=== PATIENT | female | born 1945 | race Caucasian/White ===

== ENCOUNTER 2017-08-28 09:14 | Emergency (ER) | payer OTHER, MEDICAID ==
[~2017-08-28] VITALS: Ht 154.9 cm; Wt 70.0 kg
[2017-08-28 09:16] VITALS: BP 128/46
== END 2017-08-28 10:29 | disposition home or self-care (01) ==
LOC: ER 09:36
DX: E11.649 Type 2 diabetes mellitus with hypoglycemia without coma (principal); I10 Essential (primary) hypertension; T38.3X5A Adverse effect of insulin and oral hypoglycemic [antidiabetic] drugs, initial encounter; Y92.89 Other specified places as the place of occurrence of the external cause
CPT/HCPCS: 82962; 99284

== ENCOUNTER 2018-04-30 03:47 | Inpatient (IN) | payer OTHER, MEDICAID ==
[~2018-04-30] VITALS: Ht 162.6 cm; Wt 61.7 kg
[~2018-04-30 03:47] MED LIST: ASPI-1159 PO; CHOL100044 PO; DOCU-267 PO; FERR325T6 PO; GLIP10TA10 PO; HYDR-4094 PO; LOT105 GT; METF-414 PO; OMEP40CA34 PO; ONDA4TAB5 PO; P20 PO; PRAV80TA21 PO
[2018-04-30] MEDS ORDERED: SODIUM CHLORIDE 0.9% 1,000 ML IV ONE (04:12)
[2018-04-30] MEDS ORDERED: ONDANSETRON HCL 4MG/2ML INJ IV STA (04:12)
[2018-04-30] MEDS ORDERED: MORPHINE SULFATE 10 MG/ML CPJ IV ONE (04:15)
[2018-04-30 04:38] LABS: BASOPHILS % 1.2 % (0.0-2.0); EOSINOPHILS % 2.7 % (0.0-5.0); HEMATOCRIT. 29.5 % (36.0-48.0); HEMOGLOBIN. 10.2 g/dL (12.0-16.0); LYMPHOCYTES % 10.1 % (20.0-50.0); MEAN CORPUSCULAR HEMOGLOBIN 28.4 pg (28.0-32.0); MEAN CORPUSCULAR VOLUME 82.2 fL (81.0-99.0); MEAN PLATELET VOLUME 6.9 fl (7.4-10.4); MONOCYTES % 8.2 % (2.0-8.0); NEUTROPHILS % 77.8 % (40.0-76.0); PLATELET 347 x1000/uL (130-400); RED BLOOD CELL COUNT 3.59 mill/uL (4.2-5.4)
[2018-04-30 05:01] LABS: CHLORIDE 93 mEq/L (98-107)
[2018-04-30] MEDS ORDERED: IPRATROPIUM/ALBUTEROL 0.5-3(2.5)MG/3ML NEB INH PRN (08:30)
[2018-04-30] MEDS ORDERED: ONDANSETRON HCL 4MG/2ML INJ IV PRN (08:30)
[2018-04-30] MEDS ORDERED: ACETAMINOPHEN 325MG TABLET PO PRN (08:30)
[2018-04-30] MEDS ORDERED: HYDROMORPHONE HCL/PF 2MG/ML CPJ IV PRN (08:30)
[2018-04-30] MEDS ORDERED: DIPHENHYDRAMINE 50MG/ML VIAL IV PRN (08:30)
[2018-04-30 09:10] VITALS: BP 128/36
[2018-04-30] MEDS ORDERED: HYDR-4001 PO (10:27)
[2018-04-30] MEDS ORDERED: ALEN70TA46 MT (10:32)
[2018-04-30] MEDS ORDERED: OMEG-59 PO (10:32)
[2018-04-30 11:00] VITALS: BP 128/36
[2018-04-30] MEDS ORDERED: SODIUM CHLORIDE 0.9% 500 ML IV ONE (11:30)
[2018-04-30 12:00] VITALS: BP 121/46
[2018-04-30] MEDS: FERROUS SULFATE 325MG TABLET PO SCH ×2 (12:21→17:28)
[2018-04-30] MEDS: CHOLECALCIFEROL (D3) 1000 UNIT TABLET PO SCH (12:21)
[2018-04-30] MEDS: ASPIRIN 81MG TABLET PO SCH (12:22)
[2018-04-30] MEDS: PREDNISONE 20MG TABLET PO SCH ×3 (12:22→23:33)
[2018-04-30] MEDS ORDERED: PIPERACILLIN/TAZ 3.375G PREMIX 50 ML IV SCH (12:45)
[2018-04-30] MEDS: PIPERACILLIN/TAZ 2.25G PREMIX 50 ML IV SCH ×2 (14:36→20:20)
[2018-04-30] MEDS: SODIUM CHLORIDE 0.9% 1,000 ML IV SCH ×3 (14:36→23:33)
[2018-04-30 16:22] VITALS: BP 126/47
[2018-04-30] MEDS ORDERED: DEXTROSE 50% WATER 50ML SYRINGE IV PRN (16:30)
[2018-04-30] MEDS: BLOOD SUGAR DIAGNOSTIC STRIP TEST SCH ×2 (17:20→20:25)
[2018-04-30] MEDS: INSULIN LISPRO 100 UNITS/ML SUBCUT SCH ×2 (17:34→20:34)
[2018-04-30 20:00] VITALS: BP 134/50
[2018-04-30] MEDS: ATORVASTATIN CALCIUM 40MG TABLET PO SCH (20:20)
[2018-05-01] VITALS: BP 133/56
[2018-05-01] MEDS: PIPERACILLIN/TAZ 2.25G PREMIX 50 ML IV SCH ×4 (03:06→20:33)
[2018-05-01 04:00] VITALS: BP 122/61
[2018-05-01] MEDS: PREDNISONE 20MG TABLET PO SCH ×2 (06:32→12:55)
[2018-05-01] MEDS: BLOOD SUGAR DIAGNOSTIC STRIP TEST SCH ×5 (06:37→20:33)
[2018-05-01 06:58] LABS: BASOPHILS % 0.3 % (0.0-2.0); EOSINOPHILS % 0.1 % (0.0-5.0); HEMATOCRIT. 25.5 % (36.0-48.0); HEMOGLOBIN. 8.9 g/dL (12.0-16.0); LYMPHOCYTES % 18.2 % (20.0-50.0); MEAN CORPUSCULAR HEMOGLOBIN 28.8 pg (28.0-32.0); MEAN CORPUSCULAR VOLUME 82.5 fL (81.0-99.0); MEAN PLATELET VOLUME 6.8 fl (7.4-10.4); MONOCYTES % 1.7 % (2.0-8.0); NEUTROPHILS % 79.7 % (40.0-76.0); PLATELET 293 x1000/uL (130-400); RED BLOOD CELL COUNT 3.09 mill/uL (4.2-5.4); RED CELL DISTRIBUTION WIDTH 13.9 % (11.6-14.6)
[2018-05-01 08:00] VITALS: BP 122/50
[2018-05-01] MEDS: INSULIN LISPRO 100 UNITS/ML SUBCUT SCH ×5 (09:19→21:44)
[2018-05-01] MEDS: CHOLECALCIFEROL (D3) 1000 UNIT TABLET PO SCH (09:20)
[2018-05-01] MEDS: ASPIRIN 81MG TABLET PO SCH (09:20)
[2018-05-01] MEDS: SODIUM CHLORIDE 0.9% 1,000 ML IV SCH ×2 (09:21→18:19)
[2018-05-01] MEDS: FERROUS SULFATE 325MG TABLET PO SCH ×3 (09:22→18:18)
[2018-05-01 11:23] LABS: CLARITY URINE CLEAR (CLEAR); COLOR URINE YELLOW (YELLOW); KETONES URINE NEGATIVE (NEGATIVE); LEUKOCYTE ESTERASE URINE 1+ (NEGATIVE); NITRITE URINE NEGATIVE (NEGATIVE); OCCULT BLOOD URINE NEGATIVE (NEGATIVE); PH URINE 7.5 (4.5-8.0); PROTEIN URINE NEGATIVE (NEGATIVE); SPECIFIC GRAVITY URINE 1.008 (1.005-1.030); UROBILINOGEN URINE 0.2 E.U./dL (0.2-1.0)
[2018-05-01 12:14] VITALS: BP 112/43
[2018-05-01] MEDS ORDERED: VANCOMYCIN 1250MG in DEXTROSE 5% WATER 250ML IV SCH (13:30)
[2018-05-01] MEDS ORDERED: LACTULOSE 20G/30ML UDC PO SCH (14:00)
[2018-05-01] MEDS ORDERED: BISACODYL 10MG SUPP PR PRN (14:00)
[2018-05-01] MEDS: DOCUSATE SODIUM 250MG CAPSULE PO SCH (15:21)
[2018-05-01 16:17] VITALS: BP 125/57
[2018-05-01 20:00] VITALS: BP 131/60
[2018-05-01] MEDS: ATORVASTATIN CALCIUM 40MG TABLET PO SCH (20:33)
[2018-05-02] VITALS: BP 128/61
[2018-05-02] MEDS: PIPERACILLIN/TAZ 2.25G PREMIX 50 ML IV SCH ×2 (02:26→09:44)
[2018-05-02] MEDS: SODIUM CHLORIDE 0.9% 1,000 ML IV SCH (02:26)
[2018-05-02 04:00] VITALS: BP 135/61
[2018-05-02 06:10] LABS: BASOPHILS % 0.2 % (0.0-2.0); HEMATOCRIT. 24.7 % (36.0-48.0); HEMOGLOBIN. 8.5 g/dL (12.0-16.0); LYMPHOCYTES % 13.8 % (20.0-50.0); MEAN CORPUSCULAR HEMOGLOBIN 28.6 pg (28.0-32.0); MEAN CORPUSCULAR VOLUME 83.2 fL (81.0-99.0); MEAN PLATELET VOLUME 6.9 fl (7.4-10.4); MONOCYTES % 10.6 % (2.0-8.0); NEUTROPHILS % 75.4 % (40.0-76.0); PLATELET 305 x1000/uL (130-400); RED BLOOD CELL COUNT 2.97 mill/uL (4.2-5.4); RED CELL DISTRIBUTION WIDTH 14.4 % (11.6-14.6)
[2018-05-02] MEDS: BLOOD SUGAR DIAGNOSTIC STRIP TEST SCH (06:50)
[2018-05-02 08:00] VITALS: BP 141/50
[2018-05-02] MEDS ORDERED: VANCOMYCIN 1 G PREMIX 200 ML IV SCH (09:00)
[2018-05-02] MEDS: FERROUS SULFATE 325MG TABLET PO SCH (09:30)
[2018-05-02] MEDS: ASPIRIN 81MG TABLET PO SCH (09:30)
[2018-05-02] MEDS: DOCUSATE SODIUM 250MG CAPSULE PO SCH (09:30)
[2018-05-02] MEDS: INSULIN LISPRO 100 UNITS/ML SUBCUT SCH (09:31)
[2018-05-02] MEDS: CHOLECALCIFEROL (D3) 1000 UNIT TABLET PO SCH (09:44)
[2018-05-02 12:01] VITALS: BP 119/74
[2018-05-02 12:08] VITALS: BP 117/71
[2018-05-03 17:11] LABS: HIV SCREEN 4G Non Reactive (Non Reactive)
== END 2018-05-02 14:29 | disposition home or self-care (01) | DRG 389 ==
LOC: ER 03:47 → 6EST 05:25 → EDBEDREQSVC 05:27 → EDBEDREQTM 05:27 → EDBEDREQ 05:27 → ENRESERV 06:36
PROVIDERS: ADMIT Internal Medicine; ATTEND Internal Medicine
DX: K56.600 Partial intestinal obstruction, unspecified as to cause (principal); C85.90 Non-Hodgkin lymphoma, unspecified, unspecified site; L03.116 Cellulitis of left lower limb; C91.10 Chronic lymphocytic leukemia of B-cell type not having achieved remission; E11.9 Type 2 diabetes mellitus without complications; E78.5 Hyperlipidemia, unspecified; D64.9 Anemia, unspecified; I10 Essential (primary) hypertension; Z90.49 Acquired absence of other specified parts of digestive tract; Z90.710 Acquired absence of both cervix and uterus; Z79.82 Long term (current) use of aspirin; Z79.1 Long term (current) use of non-steroidal anti-inflammatories (NSAID); Z79.899 Other long term (current) drug therapy
CPT/HCPCS: 36415; 71045; 74018; 74176; 80048; 80061; 82962; 83605; 83615; 84443; 87389; 93970; 96361; 96374; 96375; 99285; J1170; J1815; J2270; J2405; J2543; J3370; J7030; J7060; J7512